=== PATIENT | female | born 1975 | race African-American/Black ===

== ENCOUNTER 2016-05-14 10:39 | Emergency (ER) | payer OTHER ==
[~2016-05-14] VITALS: Ht 160 cm; Wt 75.0 kg
[~2016-05-14 10:39] MED LIST: FLEXERIL10 MG PO; HYCODAN SYRUP480 ML PO; MOBIC15 MG PO; NAPROSYN500 MG PO; PRENATAL CAPLE1 EACH PO; TYLENOL EXTRA500 MG PO; ULTRAM50 MG PO; ZITHROMAX Z-PA250 MG PO; ZOFRAN4 MG PO
[2016-05-14] MEDS ORDERED: UNISOM25 MG PO (11:13)
[2016-05-14 12:52] LABS: EOSINOPHIL COUNT 0.1 K/uL (0-0.3); HEMATOCRIT 28.8 % (36.0-46.0); LYMPHOCYTE COUNT 1.8 K/uL (1.0-2.8); MCH 31.8 PG (29.0-34.0); MCHC 35.4 G/DL (30.0-36.0); MCV 89.7 FL (83-99); MEAN PLAT.VOLUME 10.9 uM^3 (9.5-12.4); MONOCYTE (%) 6.5 % (3-12); MONOCYTE COUNT 0.4 K/uL (0-0.8); NEUTROPHIL (%) 62.6 % (45-76); NEUTROPHIL COUNT 3.8 K/uL (1.8-6.4); PLATELET COUNT 206 K/uL (156-360); RBC DIS.WIDTH-CV 12.1 % (11.8-14.6); RBC DIS.WIDTH-SD 38.1 % (39-53); RED BLOOD COUNT 3.21 M/uL (3.80-5.20); WHITE BLOOD COUNT 6.1 K/uL (4.1-10.2)
[2016-05-14 12:58] LABS: CHLORIDE 106 mEq/L (99-109); POTASSIUM 3.7 mEq/L (3.7-5.4); SODIUM 135 mEq/L (136-147)
[2016-05-14 13:00] LABS: D-DIMER ELISA 0.26 mg/L FEU (< 0.57); GLUCOSE 80 mg/dL (70-99)
[2016-05-14 13:01] LABS: ANION GAP 9 MEQ/L (2-14)
[2016-05-14 13:02] LABS: TOTAL BILIRUBIN 0.3 mg/dL (0.0-1.0)
[2016-05-14 13:03] LABS: ALKALINE PHOSPHATASE 29 IU/L (3-129)
[2016-05-14 13:04] LABS: GFR ESTIMATE (CALCULATED) > 59 mL/min/
[2016-05-14 13:05] LABS: UREA NITROGEN (BUN) 11 mg/dL (9-23)
[2016-05-14 13:09] LABS: TROP-I INTERPRETATION NEGATIVE; TROPONIN-I < 0.01 ng/mL (0.0-0.30)
[2016-05-14 13:30] LABS: QUANTITATIVE HCG 133207.5 MIU/ML
[2016-05-14 13:36] LABS: ADD MIUA? YES; BILIRUBIN NEGATIVE; BLOOD NEGATIVE; COLOR YELLOW ((YELLOW)); GLUCOSE (STRIP) NEGATIVE; KETONES NEGATIVE; LEUKOCYTES NEGATIVE; NITRITE NEGATIVE; PROTEIN (STRIP) TRACE; UROBILINOGEN 0.2 MG/DL (0.2-1.0)
[2016-05-14 14:04] LABS: BACTERIA NONE SEEN; CASTS NONE SEEN /LPF; EPITHELIAL CELLS RARE; MUCUS NONE SEEN; PATHOLOGICAL CAST NONE SEEN; RED BLOOD CELLS 0-5 /HPF (0-5); SMALL ROUND CELL NONE SEEN; UCUL ADDED? NO; WHITE BLOOD CELLS 0-5 /HPF (0-5); YEAST-LIKE CELL NONE SEEN
[2016-05-14 14:17] LABS: CRYSTALS NONE SEEN
[2016-05-14 16:10] LABS: TROP-I INTERPRETATION NEGATIVE; TROPONIN-I < 0.01 ng/mL (0.0-0.30)
[2016-05-14 16:36] VITALS: BP 113/85
== END 2016-05-14 16:37 | disposition home or self-care (01) ==
LOC: EME 10:39
PROVIDERS: Physician Assistant
DX: O99.511 Diseases of the respiratory system complicating pregnancy, first trimester (principal); J40 Bronchitis, not specified as acute or chronic; O21.9 Vomiting of pregnancy, unspecified; O09.511 Supervision of elderly primigravida, first trimester; Z3A.12 12 weeks gestation of pregnancy
CPT/HCPCS: 71020; 80053; 81003; 84484; 84702; 85025; 85379; 93005; 99281; 99283

== ENCOUNTER → 2016-08-14 | Outpatient (CLI) | payer OTHER ==
[~2016-08-14] MED LIST changes: +UNISOM25 MG PO
== END | disposition home or self-care (01) ==
LOC: CDC 11:11
DX: I10 Essential (primary) hypertension (principal); O09.90 Supervision of high risk pregnancy, unspecified, unspecified trimester; R94.31 Abnormal electrocardiogram [ECG] [EKG]
CPT/HCPCS: 93000

== ENCOUNTER 2016-11-20 08:03 | Inpatient (IN) | payer OTHER ==
[2016-11-20] VITALS (17 sets, daily range): BP systolic 114–140; BP diastolic 56–88
[~2016-11-20] VITALS: Ht 160 cm; Wt 88.4 kg
[2016-11-20 10:23] LABS: EOSINOPHIL (%) 2.7 % (0-5); EOSINOPHIL COUNT 0.2 K/uL (0-0.3); HEMATOCRIT 33.7 % (36.0-46.0); IMMATURE GRANULOCYTE (%) 0.5 % (0.0-0.7); INSTRUMENT ABS NEUTROPHIL CT 3.9 K/uL; LYMPHOCYTE COUNT 1.7 K/uL (1.0-2.8); MCH 32.7 PG (29.0-34.0); MCHC 34.7 G/DL (30.0-36.0); MCV 94.1 FL (83-99); MEAN PLAT.VOLUME 12.1 uM^3 (9.5-12.4); MONOCYTE (%) 7.4 % (3-12); MONOCYTE COUNT 0.5 K/uL (0-0.8); NEUTROPHIL (%) 61.7 % (45-76); NEUTROPHIL COUNT 3.9 K/uL (1.8-6.4); PLATELET COUNT 141 K/uL (156-360); RBC DIS.WIDTH-CV 13.3 % (11.8-14.6); RBC DIS.WIDTH-SD 46.1 % (39-53); RED BLOOD COUNT 3.58 M/uL (3.80-5.20); WHITE BLOOD COUNT 6.3 K/uL (4.1-10.2)
[2016-11-21] VITALS (32 sets, daily range): BP systolic 93–149; BP diastolic 50–90
[2016-11-22 04:30] VITALS: BP 122/65
[2016-11-22 06:00] LABS: EOSINOPHIL (%) 0.7 % (0-5); EOSINOPHIL COUNT 0.1 K/uL (0-0.3); HEMATOCRIT 27.7 % (36.0-46.0); IMMATURE GRANULOCYTE (%) 0.5 % (0.0-0.7); IMMATURE GRANULOCYTE COUNT 0.1 K/uL; INSTRUMENT ABS NEUTROPHIL CT 10.3 K/uL; LYMPHOCYTE COUNT 2.4 K/uL (1.0-2.8); MCH 32.7 PG (29.0-34.0); MCHC 34.7 G/DL (30.0-36.0); MCV 94.2 FL (83-99); MONOCYTE COUNT 0.8 K/uL (0-0.8); NEUTROPHIL (%) 75.1 % (45-76); NEUTROPHIL COUNT 10.3 K/uL (1.8-6.4); NRBC (%) 0.1 /100 WBC (0-0); PLATELET COUNT 147 K/uL (156-360); RBC DIS.WIDTH-CV 13.5 % (11.8-14.6); RBC DIS.WIDTH-SD 45.8 % (39-53); RED BLOOD COUNT 2.94 M/uL (3.80-5.20); WHITE BLOOD COUNT 13.7 K/uL (4.1-10.2)
[2016-11-22 07:40] VITALS: BP 114/65
[2016-11-22] MEDS ORDERED: IBUPROFEN800 MG PO (15:43)
[2016-11-22] MEDS ORDERED: FERROUS GLUCON324 MG PO (15:43)
[2016-11-22 16:11] VITALS: BP 138/84
[2016-11-22 19:22] VITALS: BP 134/87
[2016-11-22 22:34] VITALS: BP 129/88
[2016-11-23 04:00] VITALS: BP 137/85
[2016-11-23 08:24] VITALS: BP 122/81
[2016-11-23 11:00] VITALS: BP 140/72
== END 2016-11-23 13:55 | disposition home or self-care (01) | DRG 774 ==
LOC: LDRP-OP → 2WEST 08:04 → LDRP-OP 20:04 → 2WEST 11-21 13:28 → LDRP-OP 12-22 14:38
PROVIDERS: Advanced Practice Midwife; Obstetrics & Gynecology
PROC: 3E033VJ Introduction of Other Hormone into Peripheral Vein, Percutaneous Approach (ICD-10-PCS; principal; 2016-11-20)
PROC: 10907ZC Drainage of Amniotic Fluid, Therapeutic from Products of Conception, Via Natural or Artificial Opening (ICD-10-PCS; principal; 2016-11-20)
PROC: 0U7C7ZZ Dilation of Cervix, Via Natural or Artificial Opening (ICD-10-PCS; principal; 2016-11-20)
PROC: 3E0P7GC Introduction of Other Therapeutic Substance into Female Reproductive, Via Natural or Artificial Opening (ICD-10-PCS; principal; 2016-11-20)
PROC: 10E0XZZ Delivery of Products of Conception, External Approach (ICD-10-PCS; 2016-11-21)
PROC: 00HU33Z Insertion of Infusion Device into Spinal Canal, Percutaneous Approach (ICD-10-PCS; 2016-11-21)
PROC: 3E0S3CZ (ICD-10-PCS; 2016-11-21)
DX: O10.02 Pre-existing essential hypertension complicating childbirth (principal); D62 Acute posthemorrhagic anemia; O99.02 Anemia complicating childbirth; O63.1 Prolonged second stage (of labor); O69.81X0 Labor and delivery complicated by cord around neck, without compression, not applicable or unspecified; O62.1 Secondary uterine inertia; O62.0 Primary inadequate contractions; O62.2 Other uterine inertia; O26.23 Pregnancy care for patient with recurrent pregnancy loss, third trimester; Z3A.40 40 weeks gestation of pregnancy; Z37.0 Single live birth; O09.523 Supervision of elderly multigravida, third trimester
CPT/HCPCS: 85025; 86900; 86901; C1755; G0378; J0595; J3010; J7120; S0020